=== PATIENT | female | born 1955 | race Caucasian/White ===

== ENCOUNTER 2021-04-26 13:12 | Emergency (ER) | payer SELFPAY ==
--- NOTE | 2021-04-26 14:10 | EDPHYS ---
Physician Documentation [facility] Name: Nirali Valdez Age: 66 yrs Sex: Female : 1955 Arrival Date: 04/26/2021 Time: 13:19 Bed 16 Private MD: ED Physician Wily Khoury HPI: 04/26 14:08 This 66 yrs old Female presents to ER via Wheelchair with complaints of Fall pm1 Injury, Ankle Injury. 14:08 Details of fall: The patient fell from an upright position. Onset: The symptoms/episode pm1 began/occurred 2 day(s) ago. 14:08 Associated injuries: The patient sustained right ankle. The patient has not experienced pm1 similar symptoms in the past. The patient has been recently seen by a physician: Patient was seen at [facility] ER for right ankle pain and was diagnosed with right ankle fracture. Patient was discharged home with a splint and crutches. Patient presenting here because she would like to get a cast. Historical: - Allergies: 13:28 No Known Allergies; ca1 - PMHx: 13:28 Diabetes mellitus; Hypercholesterolemia; ca1 - PSHx: 13:28 None; ca1 - Immunization history:: Client reports having NOT received the Covid vaccine. Pneumococcal vaccine is not up to date, Flu vaccine is not up to date. - Social history:: Smoking status: Patient/guardian denies using tobacco, but has a distant history of tobacco abuse. ROS: 14:08 Constitutional: Negative for fever, chills, and weight loss, Cardiovascular: Negative pm1 for chest pain, palpitations, and edema, Respiratory: Negative for shortness of breath, cough, wheezing, and pleuritic chest pain, Neuro: Negative for headache, weakness, numbness, tingling, and seizure. 14:08 MS/extremity: Positive for pain, of the right ankle. 14:08 All other systems are negative. Exam: 14:08 Constitutional: This is a well developed, well nourished patient who is awake, alert, pm1 and in no acute distress. Head/Face: Normocephalic, atraumatic. 14:08 Skin: Warm, dry with normal turgor. Normal color with no rashes, no lesions, and no evidence of cellulitis. 14:08 Cardiovascular: Exam negative for acute changes, Rate: normal, Rhythm: regular, Pulses: no pulse deficits are appreciated, Pulses are 2+ in right dorsalis pedis artery. Edema: is not appreciated. 14:08 Respiratory: Exam negative for acute changes, respiratory distress, shortness of breath. 14:08 Musculoskeletal/extremity: Extremities: grossly normal except: noted in the right ankle: Patient with Orthoglass splint on right ankle. Neurovascular status intact to right foot. 14:08 Neuro: Exam negative for acute changes, Orientation: is normal, Mentation: is normal, Motor: is normal, moves all fours. Vital Signs: 13:24 BP 134 / 76; Pulse 85; Resp 16 S; Temp 97(TE); Pulse Ox 98% on R/A; Weight 117.03 kg ca1 (R); Height 5 ft. 4 in. (162.56 cm) (R); Pain 7/10; 13:24 Body Mass Index 44.29 (117.03 kg, 162.56 cm) ca1 MDM: 13:50 Patient medically screened. pm1 14:08 Data reviewed: vital signs. Data interpreted: Pulse oximetry: on room air is 98 %. pm1 Interpretation: normal. Counseling: I had a detailed discussion with the patient and/or guardian regarding: the historical points, exam findings, and any diagnostic results supporting the discharge/admit diagnosis, the need for outpatient follow up, for definitive care, a orthopedic surgeon, to return to the emergency department if symptoms worsen or persist or if there are any questions or concerns that arise at home. 14:08 ED course: Patient offered pain medication and x-ray. Patient refused because she pm1 already got a prescription for pain medications from [facility] and got a x-ray to diagnosed the fracture. Administered Medications: No medications were administered Disposition Summary: 04/26/21 14:10 Discharge Ordered Location: Home pm1 Problem: new pm1 Symptoms: are unchanged pm1 Condition: Stable pm1 Diagnosis - Right ankle pain pm1 Followup: pm1 - With: Emergency Department - When: As needed - Reason: Worsening of condition Followup: pm1 - With: Private Physician - When: 2 - 3 days - Reason: Recheck today's complaints, Continuance of care, Re-evaluation by your physician Discharge Instructions: - Discharge Summary Sheet pm1 - Cast or Splint Care, Adult pm1 - Ankle Pain pm1 Forms: - Medication Reconciliation Form pm1 - Thank You Letter pm1 - Antibiotic Education pm1 - Prescription Opioid Use pm1 Signatures: Garrett Helm, LOCK TENDER LOCK TENDER pm1 Chinyere Shields RN RN ca1
--- NOTE | 2021-04-26 14:10 | ER ---
Nurse's Notes [facility] Name: Nirali Valdez Age: 66 yrs Sex: Female : 1955 Arrival Date: 04/26/2021 Time: 13:19 Bed 16 Private MD: Diagnosis: Right ankle pain Presentation: 04/26 13:24 Chief complaint: Patient states: Fell and broke my R ankle on Tuesday. Was brought at [address] they put a splint on the R leg because they said they don't do casting there. I called Dr. Hodge and they couldn't get me in until the . I am just scared cause I don't feel this splint is as secure as a cast until I see a bone doctor. Coronavirus screen: Client denies travel out of the [place] in the last 14 days. At this time, the client does not indicate any symptoms associated with coronavirus-19. Ebola Screen: Patient negative for fever greater than or equal to 101.5 degrees Fahrenheit, and additional compatible Ebola Virus Disease symptoms Patient denies exposure to infectious person. Patient denies travel to an Ebola-affected area in the 21 days before illness onset. No symptoms or risks identified at this time. Initial Sepsis Screen: Does the patient meet any 2 criteria? No. Patient's initial sepsis screen is negative. Does the patient have a suspected source of infection? No. Patient's initial sepsis screen is negative. Risk Assessment: Do you want to hurt yourself or someone else? Patient reports no desire to harm self or others. Onset of symptoms was April 26, 2021. 13:24 Method Of Arrival: Wheelchair [facility] 13:24 Acuity: NEHEMIAH 4 ca1 Historical: - Allergies: 13:28 No Known Allergies; ca1 - PMHx: 13:28 Diabetes mellitus; Hypercholesterolemia; ca1 - PSHx: 13:28 None; ca1 - Immunization history:: Client reports having NOT received the Covid vaccine. Pneumococcal vaccine is not up to date, Flu vaccine is not up to date. - Social history:: Smoking status: Patient/guardian denies using tobacco, but has a distant history of tobacco abuse. Screenin:49 Abuse screen: Denies threats or abuse. Nutritional screening: No deficits noted. ap3 Tuberculosis screening: No symptoms or risk factors identified. Fall Risk Assessment: 13:59 General: Appears in no apparent distress. comfortable, Behavior is calm, cooperative, ap3 appropriate for age. Pain: Complains of pain in left lateral ankle Pain does not radiate. Pain currently is 4 out of 10 on a pain scale. Quality of pain is described as aching, Pain began suddenly, 04/24/2021 Current management is with splint placed by Ginna REED. Patient states she takes ibuprofen and tylenol at home to control the pain. Neuro: Level of Consciousness is awake, alert, obeys commands, Oriented to person, place, time, situation. Cardiovascular: Capillary refill < 3 seconds Pulses are palpable in right dorsalis pedis artery and left dorsalis pedis artery. Respiratory: Airway is patent Respiratory effort is even, unlabored, Respiratory pattern is regular, symmetrical. GI: No signs and/or symptoms were reported involving the gastrointestinal system. : No signs and/or symptoms were reported regarding the genitourinary system. EENT: No signs and/or symptoms were reported regarding the EENT system. Derm: No signs and/or symptoms reported regarding the dermatologic system. Musculoskeletal: splint placed with aditi bandage on right lower extremity. Vital Signs: 13:24 BP 134 / 76; Pulse 85; Resp 16 S; Temp 97(TE); Pulse Ox 98% on R/A; Weight 117.03 kg ca1 (R); Height 5 ft. 4 in. (162.56 cm) (R); Pain 7/10; 13:24 Body Mass Index 44.29 (117.03 kg, 162.56 cm) ca1 ED Course: 13:19 Patient arrived in ED. bp1 13:28 Triage completed. ca1 13:28 Arm band placed on right wrist. ca1 13:36 Cindy Bullard, KYLER is Primary Nurse. ap3 13:49 Garrett Helm NP is PHCP. pm1 13:49 Wily Khoury MD is Attending Physician. pm1 14:01 Patient has correct armband on for positive identification. Bed in low position. Call ap3 light in reach. Side rails up X2. Adult w/ patient. Pulse ox on. NIBP on. Door closed. Noise minimized. 14:01 No provider procedures requiring assistance completed. Patient did not have IV access ap3 during this emergency room visit. 14:04 Nurse Practitioner and/or Physician Manager Online to see patient. ap3 Administered Medications: No medications were administered Outcome: 14:10 Discharge ordered by MD. pm1 14:30 Discharged to home via wheelchair, with family. ap3 14:30 Condition: good 14:30 Discharge instructions given to patient, Instructed on discharge instructions, follow up and referral plans. Demonstrated understanding of instructions, follow-up care. 14:30 Patient left the ED. ap3 Signatures: Garrett Helm NP ROASTER OPERATOR pm1 Cindy Bullard RN RN ap3 Chinyere Shields RN RN ca1 Carmen Guzman bp1
[2021-04-26 14:39] VITALS: BP 134/76; TEMP 97; O2SAT 98
== END 2021-04-26 14:30 | disposition home or self-care (01) ==
LOC: ER 13:12
DX: S82.891G Other fracture of right lower leg, subsequent encounter for closed fracture with delayed healing (principal)
CPT/HCPCS: 99283